=== PATIENT | female | born 1985 | race Caucasian/White ===

== ENCOUNTER 2016-07-04 18:31 | Emergency (ER) ==
[2016-07-04 19:36] LABS: URINE CULTURE PL NEEDED? NO; URINE SOURCE CLEAN CATCH
[2016-07-04 19:55] LABS: MANUAL DIFF NEEDED? NO
[2016-07-04 19:59] LABS: BASO% 0.7 % (0.0-0.8); EOS% 3.3 % (0.0-10.0); HEMATOCRIT 40.8 % (37.0-47.0); HEMOGLOBIN 13.9 g/dL (12.0-16.0); IMM GRAN# 0.01 X1000 (0.0-0.04); IMM GRAN% 0.2 % (0.0-0.5); LYMPH# 2.56 X1000 (1.2-3.4); LYMPH% 42.1 % (20.5-51.1); MCH 30.9 PG (27-31); MCHC 34.1 g/dL (33-37); MCV 90.7 FL (81-99); MONO# 0.38 X1000 (0.11-0.59); MONO% 6.3 % (1.7-9.3); NEUT% 47.4 % (42.2-75.2); PLT 242 X1000 (130-400)
[2016-07-04 20:03] LABS: BILIRUBIN URINE NEGATIVE (NEGATIVE); BLOOD URINE NEGATIVE (NEGATIVE); CLARITY SL. CLOUDY (CLEAR); COLOR YELLOW; GLUCOSE URINE NEGATIVE (NEGATIVE); LEUKOCYTES URINE NEGATIVE (NEGATIVE); NITRITE URINE NEGATIVE (NEGATIVE); PROTEIN URINE NEGATIVE (NEGATIVE); UROBILINOGEN URINE NORMAL
[2016-07-04 20:04] LABS: URINE EPITHELIAL CELLS <10 /HPF (<10)
[2016-07-04 20:24] LABS: AGAP 9; ALBUMIN 4.3 g/dL (3.5-5.0); ALKALINE PHOSPHATASE 74 U/L (32-104); BUN 6 mg/dL (8-22); CALCIUM 9.7 mg/dL (8.8-10.2); CHLORIDE 104 mmol/L (98-107); COSMO 271; GOT 16 U/L (10-30); GPT 16 U/L (10-36); POTASSIUM 3.6 mmol/L (3.5-5.1); SODIUM 137 mmol/L (136-145); TCO2 23 mmol/L (25-35); TOTAL PROTEIN 7.1 g/dL (6.3-8.3)
--- NOTE | 2016-07-04 20:26 | PROVIDER DOCUMENTATION ---
HPI-Abdominal Pain/GI Problem - General Chief Complaint: Flank Pain Stated Complaint: FLANK/BACK PAIN Time Seen by Provider: 07/04/16 20:01 Source: patient Allergies/Adverse Reactions: Patient Allergies Allergy/AdvReac Type Severity Reaction Status Date / Time Penicillins Allergy RASH Verified 05/18/16 14:44 Home Medications: Escitalopram Oxalate [Lexapro] 20 mg PO QHS 02/12/16 Dicyclomine HCl [Bentyl] 20 mg PO TID 05/06/16 Fexofenadine [Katherin] 180 mg PO QHS 05/06/16 Omeprazole 40 mg PO QHS 05/06/16 Buspirone [Buspar] 30 mg PO BID 07/04/16 - History of Present Illness-ABD Nature of Presenting Problems: 30 y.o WF presents to the ED with LUQ pain for 3 days that has gotten worse today. Pt states she has a liver abscess. Seen Dr chicas and Dr lock for this problem with a picc line and 6 weeks of antibiotics. Pain is in the same location. Complains of chills but no fever. Abdominal Pain Onset Location: reports: LLQ Quality of Pain: reports: cramping Severity in ED: reports: moderate, severe Onset/Duration: reports: 3 days ago Activities at Onset: reports: none Modifying Factors: improves with: nothing Associated Symptoms: reports: fever/chills, nausea. denies: chest pain, constipation, cough, diarrhea, shortness of breath, syncope, vomiting Dark Stools Present?: reports: none noticed Review of Systems - Adult - REVIEW OF SYSTEMS - ADULT Constitutional: denies: chills, fever Eyes: reports: no symptoms reported Ears, Nose, Mouth & Throat: reports: no symptoms reported Cardiovascular: reports: no symptoms reported Respiratory: denies: cough, shortness of breath, wheezing Gastrointestinal: reports: abdominal pain, nausea. denies: constipation, diarrhea, vomiting Genitourinary: reports: no symptoms reported Musculoskeletal: reports: no symptoms reported Integumentary: reports: no symptoms reported Neurological: reports: no symptoms reported Psychiatric: reports: no symptoms reported Endocrine: reports: no symptoms reported Hematologic/Lymphatic: reports: no symptoms reported Allergic/Immunologic: reports: no symptoms reported All Other Systems: Reviewed and Negative Past History - Adult - PAST MEDICAL HISTORY-ADULT Review of Records: reports: Old Records Reviewed, Nursing Assessment Review, Medications Reviewed Major Childhood Illnesses: reports: denies history Cardiovascular: reports: denies history Respiratory: reports: asthma Gastrointestinal: reports: ulcer Obstetrical/Gynecological: reports: - spont/elective (spont x's 2) Genitourinary: reports: kidney stones, other (pelvic kidney) Musculoskeletal: reports: denies history Neurological: reports: other (spine issues) Psychiatric: reports: anxiety Endocrine/Immune: reports: denies history Other Conditions: reports: denies history - PRIOR SURGERIES/PROCEDURES Surgical/Procedure History: reports: other (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) - PRIOR HOSPITALIZATIONS Prior Hospitalizations: reports: none - IMMUNIZATION STATUS Childhood Immunizations: See Nurse Assessment Flu Vaccine: See Nurse Assessment - FAMILY HISTORY Family History: reviewed, not pertinent Physical Exam-General - PHYSICAL EXAM-ADULT Initial Vital Signs Reviewed: Yes - CONSTITUTIONAL General Appearance: appears well, alert, no apparent distress - EYES Eyes: PERRL/EOMI, pink conjunctivae - HEAD, EARS, NOSE, MOUTH & THROAT HENMT: moist mucous membranes, normal ENT inspection, TMs normal, pharynx normal - NECK Neck: non-tender, full range of motion, supple, normal inspection - RESPIRATORY Respiratory: chest non-tender, lungs clear, normal breath sounds, no pleuratic chest pain, no respiratory distress, no accessory muscle use - CARDIOVASCULAR Cardiovascular: normal peripheral pulses, regular rate, rhythm - GASTROINTESTINAL (ABDOMEN) Abdominal Exam: normal bowel sounds, soft, tenderness (LUQ) - MUSCULOSKELETAL Back Exam: normal inspection, no CVA tenderness, no vertebral tenderness Extremity: normal range of motion, non-tender, normal gait, normal inspection - SKIN Integumentary: normal color, normal turgor, warm/dry - NEUROLOGIC Neurologic: grossly normal, no motor/sensory deficits - PSYCHIATRIC Psych/Mental Status: normal mood/affect, normal thought content, normal thought process, oriented x 3 Progress - PLAN OF CARE/RESULTS Progress/Plan/Lab Results: Orders Category Date Time Status Saline Loc NOW Care 07/04/16 19:17 Active CBC WITH DIFF [HEME] Stat Lab 07/04/16 19:53 Completed COMPREHENSIVE METABOLIC PANEL [CHEM] Stat Lab 07/04/16 19:53 Completed LIPASE [CHEM] Stat Lab 07/04/16 19:53 Completed TEST-URINE [PREG] Stat Lab 07/04/16 19:[address] W/POSS RFLX CULT [URINALYSIS] Stat Lab 07/04/16 19:25 Completed Vital Signs Temp Pulse Resp BP Pulse Ox 07/04/16 19:07 98.5 F 86 18 114/69 100 Penicillins Allergy (Verified 05/18/16 14:44) RASH Escitalopram Oxalate [Lexapro] 20 mg PO QHS 02/12/16 Dicyclomine HCl [Bentyl] 20 mg PO TID 05/06/16 Fexofenadine [Katherin] 180 mg PO QHS 05/06/16 Omeprazole 40 mg PO QHS 05/06/16 Acetaminophen with Codeine [Tylenol with Codeine #3 Tablet] 1 each PO Q6H PRN PRN #20 tablet 07/04/16 Buspirone [Buspar] 30 mg PO BID 07/04/16 I&O 07/03/16 07/04/16 07/05/16 06:59 06:59 06:59 Output Total 20 Balance -20 Laboratory 07/04/16 07/04/16 07/04/16 19:53 19:53 19:53 WBC 6.08 RBC 4.50 Hgb 13.9 Hct 40.8 MCV 90.7 MCH 30.9 MCHC 34.1 RDW Std Deviation 13.1 Plt Count 242 MPV 10.0 Immature Gran % (Auto) 0.2 Neut % (Auto) 47.4 Lymph % (Auto) 42.1 [place] % (Auto) 6.3 Eos % (Auto) 3.3 Baso % (Auto) 0.7 Immature Gran # (Auto) 0.01 Neut # (Auto) 2.89 Lymph # (Auto) 2.56 [place] # (Auto) 0.38 Eos # (Auto) 0.20 Baso # (Auto) 0.04 Sodium 137 Potassium 3.6 Chloride 104 Carbon Dioxide 23 L Anion Gap 9 BUN 6 L Creatinine 0.5 Estimated GFR/1.73 m2 > 60 BUN/Creatinine Ratio 12 Glucose 96 Calculated Osmolality 271 Calcium 9.7 Total Bilirubin 0.80 AST 16 ALT 16 Alkaline Phosphatase 74 Total Protein 7.1 Albumin 4.3 Globulin 3.0 Albumin/Globulin Ratio 2.0 Lipase 25 Urine Source Urine Color Urine Clarity Urine pH Ur Specific Lotus Urine Protein Urine Ketones Urine Blood Urine Nitrite Urine Bilirubin Urine Urobilinogen Urine Microscopic RBC Urine WBC Ur Epithelial Cells Urine Glucose Urine Test 07/04/16 07/04/16 19:25 19:25 WBC RBC Hgb Hct MCV MCH MCHC RDW Std Deviation Plt Count MPV Immature Gran % (Auto) Neut % (Auto) Lymph % (Auto) [place] % (Auto) Eos % (Auto) Baso % (Auto) Immature Gran # (Auto) Neut # (Auto) Lymph # (Auto) [place] # (Auto) Eos # (Auto) Baso # (Auto) Sodium Potassium Chloride Carbon Dioxide Anion Gap BUN Creatinine Estimated GFR/1.73 m2 BUN/Creatinine Ratio Glucose Calculated Osmolality Calcium Total Bilirubin AST ALT Alkaline Phosphatase Total Protein Albumin Globulin Albumin/Globulin Ratio Lipase Urine Source CLEAN CATCH Urine Color YELLOW Urine Clarity SL. CLOUDY A Urine pH 8.0 Ur Specific Lotus 1.010 Urine Protein NEGATIVE Urine Ketones NEGATIVE Urine Blood NEGATIVE Urine Nitrite NEGATIVE Urine Bilirubin NEGATIVE Urine Urobilinogen NORMAL Urine Microscopic RBC Not Reportable Urine WBC NEGATIVE Ur Epithelial Cells <10 Urine Glucose NEGATIVE Urine Test NEGATIVE Departure - Departure Time of Disposition Order: 20:58 DIAGNOSIS: Abdominal pain Disposition: HOME 01 Certified Medical Emergency: Emergent Condition: Stable Additional Instructions: Follow up with Dr chicas Prescriptions: Acetaminophen with Codeine [Tylenol with Codeine #3 Tablet] 1 each PO Q6H PRN PRN #20 tablet PRN Reason: Pain Referrals: Elli Harris [Primary Care Provider] - Karrie Chicas MD [STAFF PHYSICIAN] - Attestation - Scribe Verification/Attestation Scribe:: Kiet Lopez Acting as Scribe for:: Hudson Alvarez Scribe documention review:: This chart was documented by a scribe and accurately reflects the service the provider performed and the decisions made by the provider.
[2016-07-04 21:02] VITALS: BP 107/66
[2016-07-04] MEDS ORDERED: TYLENOL WITH CODEINE #3 ONE (21:07)
[2016-07-04] MEDS ORDERED: TYLENOL WITH CODEINE #3 PO ONE (21:07)
== END 2016-07-04 21:13 | disposition home or self-care (01) ==
LOC: P.ED 18:31
DX: R10.12 Left upper quadrant pain (principal); R68.83 Chills (without fever); R11.0 Nausea; R10.812 Left upper quadrant abdominal tenderness; F41.9 Anxiety disorder, unspecified; Z79.899 Other long term (current) drug therapy; Z87.442 Personal history of urinary calculi
CPT/HCPCS: 80053; 81001; 81025; 83690; 85025; 99283